=== PATIENT | female | born 1990 | race Caucasian/White ===

== ENCOUNTER 2019-03-22 15:06 | Inpatient (IN) ==
[2019-03-22] MEDS ORDERED: ONDANSETRON 4 MG/2 ML VIAL IV PRN (16:10)
[2019-03-22] MEDS ORDERED: LACTATED RINGERS 1,000 ML IV SCH (16:30)
[2019-03-22 17:27] LABS: Basophils % 0.3 % (0.0-0.8); Eosinophils % 0.3 % (0.00-10.9); Hematocrit 35.4 VOL% (35.7-47.0); Hemoglobin 10.8 GM/DL (12.0-16.0); Immature Granulocytes % 0.4 %; Immature Granulocytes Absolute 0.04 #; Lymphocytes # 2.2 10*3/uL (1.4-4.0); Lymphocytes % 19.5 % (21.3-54.2); Mean Corpuscular HGB Conc 30.5 GM/DL (32-36); Mean Corpuscular Volume 80.6 FL (87-102); Mean Platelet Volume 10.3 FL (9.6-12.0); Monocytes % 4.7 % (1.7-12.7); Neutrophils % 74.8 % (38.7-73.9); Platelet Count 289 T/CUMM (130-400); Red Blood Count 4.39 MC/CUMM (3.8-5.5); Red Cell Distribution Width 16.5 % (9.3-17.3); White Blood Count 11.3 T/CUMM (4-12)
[2019-03-22 17:38] LABS: INR 0.9; PT Patient Result 9.5 SECS
[2019-03-22 17:52] LABS: Alanine Aminotransferase 29 U/L (13-56); Albumin 2.4 G/DL (3.4-5.0); Alkaline Phosphatase 130 U/L (45-117); Aspartate Amino Transferase 16 U/L (0-37); Bilirubin,Direct < 0.100 MG/DL (0.0-0.20); Bilirubin,Total < 0.39 MG/DL (0.2-1.0); Blood Urea Nitrogen 9 MG/DL (7-18); Calcium 9.2 MG/DL (8.5-10.1); Glucose 87 MG/DL (74-106); Osmolality,Calculated 274.5 MOS/KG (273-304); Uric Acid 4.5 MG/DL (2.6-6.0)
[2019-03-23] MEDS ORDERED: BUTORPHANOL 2 MG/ML VIAL IV PRN (03:52)
[2019-03-23] MEDS ORDERED: CITRIC ACID/SODIUM CITRATE 30 ML UDCUP PO ONE (05:24)
[2019-03-23] MEDS ORDERED: FAMOTIDINE 20 MG/2 ML VIAL IV ONE (05:24)
[2019-03-23 06:31] LABS: Apearance,Urine CLEAR (Clear); Bacteria,Urine Occasional /HPF (Few); Bilirubin,Urine Negative (Negative); Blood, Urine Negative (Negative); Glucose,Urine (UA) Negative (Negative); Ketones,Urine 80 mg/dL (Negative); Mucus,Urine Occasional /LPF (Occasional); Nitrite,Urine Negative (Negative); Protein,Urine Negative; RBC,Urine 2 /HPF (0-4); Squamous Epithelial Cell,Urine Occasional /HPF (0-10); Urine Color Yellow (Yellow); Urine Specific Gravity 1.013 (1.001-1.035); Urine Urobilinogen < 2.0 EU/DL (0.2-1.0)
[2019-03-23] MEDS ORDERED: ceFAZolin 3,000 MG in SYRINGE 1 EACH IV ONE (07:00)
[2019-03-23] MEDS ORDERED: OXYTOCIN/LR 20 UNIT/1,000 ML BAG IV ONE ×3 (07:02→08:52)
[2019-03-23] MEDS ORDERED: miSOPROStol 200 MCG TABLET ONE (07:27)
[2019-03-23] MEDS ORDERED: METHYLERGONOVINE 0.2 MG/1 ML AMP ONE (07:28)
[2019-03-23 08:29] LABS: Cord Arterial Blood HCO3 24.4 MMOL/L
[2019-03-23 08:32] LABS: Cord Venous Blood HCO3 26.8 MMOL/L; Cord Venous Blood PCO2 62.3 MMHG; Cord Venous Blood PO2 20.2 MMHG
[2019-03-23] MEDS ORDERED: ACETAMINOPHEN 325 MG TABLET PO PRN (08:52)
[2019-03-23] MEDS ORDERED: ONDANSETRON 4 MG/2 ML VIAL IV PRN (08:52)
[2019-03-23] MEDS ORDERED: RHO(D) IMMUNE GLOBULIN 300 MCG SYRINGE IM ONE (08:52)
[2019-03-23] MEDS ORDERED: LACTATED RINGERS 1,000 ML IV SCH (09:00)
[2019-03-23] MEDS ORDERED: ceFAZolin 1,000 MG in SYRINGE 1 EACH IV SCH ×2 (09:00→23:30)
[2019-03-23] MEDS ORDERED: DEXAMETHASONE 4 MG/1 ML VIAL ONE (09:16)
[2019-03-23] MEDS ORDERED: BUPIVACAINE 0.5% 50 ML VIAL ONE (09:16)
[2019-03-23] MEDS ORDERED: EPINEPHrine 1 MG/ML VIAL ONE (09:16)
[2019-03-23] MEDS ORDERED: BUPIVACAINE SPINAL 0.75% 2 ML AMP SPINAL ONE (09:39)
[2019-03-23] MEDS ORDERED: MORPHINE 10 MG/10 ML VIAL ONE (09:40)
[2019-03-23] MEDS ORDERED: PHENYLEPHRINE 1 MG/10 ML SYRINGE IV ONE (09:41)
[2019-03-23] MEDS ORDERED: ONDANSETRON 4 MG/2 ML VIAL ONE (09:41)
[2019-03-23] MEDS ORDERED: KETOROLAC 30 MG/1 ML VIAL ONE (09:41)
[2019-03-23] MEDS ORDERED: fentaNYL 100 MCG/2 ML VIAL ONE (09:41)
[2019-03-23] MEDS: IBUPROFEN 800 MG TABLET PO PRN (10:58)
[2019-03-23 16:57] LABS: Basophils % 0.3 % (0.0-0.8); Hematocrit 32.6 VOL% (35.7-47.0); Immature Granulocytes % 0.5 %; Immature Granulocytes Absolute 0.08 #; Lymphocytes # 1.4 10*3/uL (1.4-4.0); Lymphocytes % 9.1 % (21.3-54.2); Mean Corpuscular HGB Conc 30.7 GM/DL (32-36); Mean Corpuscular Volume 79.5 FL (87-102); Monocytes % 2.9 % (1.7-12.7); Neutrophils % 87.2 % (38.7-73.9); Platelet Count 249 T/CUMM (130-400); Red Cell Distribution Width 16.3 % (9.3-17.3); White Blood Count 15.3 T/CUMM (4-12)
[2019-03-23] MEDS: oxyCODONE/ACETAMINOPHEN 5-325 MG TABLET PO PRN (21:07)
[2019-03-23] MEDS: DOCUSATE SODIUM 100 MG CAPSULE PO SCH (21:07)
[2019-03-24] MEDS: oxyCODONE/ACETAMINOPHEN 5-325 MG TABLET PO PRN ×3 (03:38→18:39)
[2019-03-24 05:58] LABS: Basophils % 0.2 % (0.0-0.8); Eosinophils % 0.2 % (0.00-10.9); Hematocrit 27.6 VOL% (35.7-47.0); Hemoglobin 8.7 GM/DL (12.0-16.0); Immature Granulocytes % 0.4 %; Immature Granulocytes Absolute 0.05 #; Lymphocytes # 3.2 10*3/uL (1.4-4.0); Lymphocytes % 26.4 % (21.3-54.2); Mean Corpuscular HGB Conc 31.5 GM/DL (32-36); Mean Corpuscular Volume 78.4 FL (87-102); Neutrophils % 65.8 % (38.7-73.9); Platelet Count 221 T/CUMM (130-400); Red Blood Count 3.52 MC/CUMM (3.8-5.5); Red Cell Distribution Width 16.5 % (9.3-17.3); White Blood Count 12.2 T/CUMM (4-12)
[2019-03-24] MEDS: MULTIVITAMIN (PRENATAL) TABLET PO SCH ×2 (07:15→09:30)
[2019-03-24] MEDS: SIMETHICONE CHEW 80 MG TABLET PO PRN ×2 (08:29→20:55)
[2019-03-24] MEDS: DOCUSATE SODIUM 100 MG CAPSULE PO SCH ×3 (08:30→20:56)
[2019-03-24] MEDS: MAGNESIUM HYDROXIDE SUSP 30 ML UDCUP PO PRN ×2 (08:30→20:55)
[2019-03-24] MEDS: IBUPROFEN 800 MG TABLET PO PRN ×2 (08:30→18:38)
[2019-03-25] MEDS: oxyCODONE/ACETAMINOPHEN 5-325 MG TABLET PO PRN ×2 (02:15→09:28)
[2019-03-25 07:37] VITALS: BP 130/71
[2019-03-25] MEDS: MAGNESIUM HYDROXIDE SUSP 30 ML UDCUP PO PRN (09:25)
[2019-03-25] MEDS: DOCUSATE SODIUM 100 MG CAPSULE PO SCH (09:25)
[2019-03-25] MEDS: MULTIVITAMIN (PRENATAL) TABLET PO SCH (09:25)
[2019-03-25] MEDS: SIMETHICONE CHEW 80 MG TABLET PO PRN (09:25)
[2019-03-25] MEDS ORDERED: DIPH/TET/ACEL PERT BOOSTER VACCINE 0.5 ML VIAL IM ONE (14:18)
[2019-03-25] MEDS: IBUPROFEN 800 MG TABLET PO PRN (14:56)
== END 2019-03-25 16:40 | disposition home or self-care (01) | DRG 540 ==
LOC: N.LD 15:06 → N.OB 03-23 12:25
PROVIDERS: ADMIT Obstetrics & Gynecology; ATTEND Obstetrics & Gynecology
PROC: LDCSECT (ICD-10-PCS; 2019-03-23 07:30)